=== PATIENT | female | born 1955 | race Asian ===

== ENCOUNTER 2017-01-12 09:25 | Emergency (ER) | payer BC ==
[2017-01-12 10:50] LABS: CARBON DIOXIDE 30.6 mmol/L (21-32); CHLORIDE SERUM 105 mmol/L (98-107); CREATININE SERUM 0.7 mg/dL (0.6-1.0); GFR1 > 60 mL/min; GLUCOSE SERUM 111 mg/dL (74-106); POTASSIUM SERUM 3.7 mmol/L (3.5-5.1); SODIUM SERUM 142 mmol/L (136-145)
[2017-01-12 10:56] LABS: BASOPHIL % 0.4 % (0-2); PLATELET COUNT 261 x10^3mcL (130-400); RED CELL DISTRIBUTION WIDTH 12.4 % (11.5-14.5)
[2017-01-12 12:14] LABS: UA SPECIFIC GRAVITY <=1.005 (1.005-1.035); microscopic required? YES
[2017-01-12 12:15] LABS: urine erythrocyte NEGATIVE (NEGATIVE)
[2017-01-12 12:28] VITALS: BP 126/72
== END 2017-01-12 12:29 | disposition home or self-care (01) ==
LOC: ED 09:25
PROVIDERS: Emergency Medicine
DX: R51 Headache (principal); N39.0 Urinary tract infection, site not specified; R03.0 Elevated blood-pressure reading, without diagnosis of hypertension; E78.00 Pure hypercholesterolemia, unspecified
CPT/HCPCS: 36415